=== PATIENT | male | born 1940 | race Caucasian/White ===

== ENCOUNTER 2019-02-16 10:06 | Emergency (ER) | payer MEDICARE, OTHER ==
[~2019-02-16] VITALS: Ht 182.9 cm; Wt 129.3 kg
[~2019-02-16 10:06] MED LIST: ASPI-630 PO; ATEN50TA PO; ATOR40TA PO; CETI10CA PO; DICY20TA3 PO; GABA-586 PO; GLUC1CAP48 PO; HYDR12.58 PO; INSU100V13 SQ; INSU100V31 SQ; IRBE300T PO; LEVO50TA PO; METF10007 PO; PENT400T4 PO; TORS20TA2 PO
[2019-02-16 10:23] VITALS: BP 0/0
--- NOTE | 2019-02-16 10:42 | PHYS DOC ---
Adult General Chief Complaint Chief Complaint: cardiac arrest HPI HPI Patient is a 78-year-old male who arrives via EMS in cardiac arrest. Per EMS, patient was found unresponsive with unknown down time and call went out to EMS at 9:23 AM. EMS estimates that they had arrived on scene at 9:30 AM and states that first responders were on the scene providing CPR when they had arrived. EMS reports that retail associate manager bilingual had patient hooked up to a ED that indicated no shock advice. EMS states that when they hooked patient up to the monitor, he was in asystole. Patient's had requested that CPR be continued in that patient be transported to the emergency room. EMS states that patient was given a dose of Narcan along with a total of 5 rounds of epinephrine. No shocks were received as patient was in asystole entire time. Upon patient arrival, patient continued in asystole despite good quality chest compressions per ACLS protocol were provi ded for over 35 minutes. Unable to obtain additional history as patient is unresponsive and asystolic.[] Review of Systems Review of Systems Constitutional: No additional information not addressed in history of present illness[] Cardiovascular: No additional information not addressed in HPI [] Neurologic: Patient unresponsive[] Unable to further assess review of systems due to severity of patient condition. Allergies Allergies Allergies Coded Allergies Type Severity Reaction Last Updated Verified Amoxicillin Allergy Intermediate Diarrhea 04/14/14 Yes clavulanic acid Allergy Intermediate Diarrhea 04/14/14 Yes latex Allergy Intermediate Rash 04/14/14 Yes Physical Exam Physical Exam Constitutional: Well developed, well nourished, unresponsive. [] HENT: Normocephalic, atraumatic, there is blood at both the ala nasi and orally. [] Eyes: Pupils fixed and dilated. [] Neck: Supple, no crepitus or signs of trauma. [] Cardiovascular: No spontaneous heart tones[] Lungs & Thorax: No spontaneous respirations to auscultation [] Abdomen: Bowel sounds absent, soft, mildly distended. [] Skin: Cool, dry, no rash. [] Extremities: No clubbing, pallor noted. [] Neurologic: Unresponsive. [] EKG EKG [] Radiology/Procedures Radiology/Procedures [] Course & Med Decision Making Course & Med Decision Making Pertinent Labs and Imaging studies reviewed. (See chart for details) Patient arrived to room from EMS and transferred from EMS cart to [facility]. During this time, history was being obtained from EMS. Given unknown down time along with good quality CPR for greater than 30 minutes, we elected to terminate life saving measures at this point and patient was pronounced at 10:07 AM. Dragon Disclaimer Dragon Disclaimer This electronic medical record was generated, in whole or in part, using a voice recognition dictation system. Departure Departure: Impression: Primary Impression: Cardiopulmonary arrest Disposition: 20 Condition: Referrals: LORRAINE ARRIAGA MD (PCP) JUSTICE YANES Jr. DO February 16, 2019 10:42
== END 2019-02-16 11:50 | disposition expired ==
LOC: ER 10:06
DX: I46.9 Cardiac arrest, cause unspecified (principal); Z88.1 Allergy status to other antibiotic agents; Z88.8 Allergy status to other drugs, medicaments and biological substances; Z91.040 Latex allergy status
CPT/HCPCS: 92950; 99285-25